=== PATIENT | male | born 1950 | race Caucasian/White ===

== ENCOUNTER 2017-03-16 11:20 | Emergency (ER) | payer MEDICARE ==
[~2017-03-16] VITALS: Ht 182.9 cm; Wt 98.4 kg
[2017-03-16] MEDS ORDERED: AUGMENTIN 875-1 EACH PO (11:58)
--- NOTE | 2017-03-16 11:59 | Emergency Room Report ---
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 N Clinical Suspician of Infection? N Mental Status: 1 - Regular (Normal Baseline) Sepsis Risk:Low Sepsis RiskN Have you (or family members/close friends) recently traveled outside the [place]? N If Yes, where/when: Have you had exposure to infectious disease within the past month? N TB? Other? Specify: Source patient, RN notes reviewed, RN/MD Exam Limitations no limitations Comment Patient accidentally injured her LEFT first thumb, volar aspect, with a sharp edge, just prior to arrival, here with a 2 cm subcutaneous laceration. ALLERGIES Coded Allergies: No Known Allergies (11/24/15) History Medical History General CAD? No Angina: No TN: No Hypertension? No Hyperlipidemia? No CHF? No DVT? No PE? No COPD? No Asthma? No Anemia? No GERD? No Gastric ulcers? No GI Bleed? No Hernia? No Thyroid Problems? No Hypothyroidism? No CVA? No Seizures? No Diabetes? No Renal Insuffiency? No End Stage Renal Disease? No UTI? No Stones? No BPH? No GB Disease: No Nephritic Syndrome? No Asplenia? No Hepatitis? No Sickle Cell Disease? No Arthritis? No Migraines? No Cataracts? No Glaucoma? No MRSA? No HIV? No TB? No Anxiety? No Depression? No Cancer? No More? No Immunization Hx DT/Tetanus 1-4 Years Ago Surgical Hx Previous Surgery?Y ORAL SURGERY Social History Smoking Hx Smoker: Never Smoker Tobacco: No Alcohol Alcohol: No Review of Systems All Other Systems Reviewed and Negative Skin lesions (laceration) Physical Exam Vital Signs Vital Signs Date Time Temp Pulse Resp B/P Pulse O2 O2 Flow FiO2 Ox Delivery Rate 03/16 1216 97.5 80 16 170/80 98 03/16 1129 97.5 84 16 172/100 98 General Appearance normal appearance, WD/WN, no apparent distress Respiratory Status Yes: trachea midline, chest symmetrical, non tender chest. No: respiratory distress. Lung Sounds bilateral: normal breath sounds, lungs clear. 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 No Results/Orders Current Medication Orders Sig/Bharati Start time Last Medication Dose Route Stop Time Status Admin Lidocaine HCl 0 .STK-MED ONE 03/16 1132 DC .ROUTE Procedures Laceration/Wound Repair Laceration/Wound Repair Risks/benefits discussed with pt/guardian? Yes Tetanus status not up to date Wound Location LEFT first finger, volar aspect Wound Length (cm) 2 Wound's Depth, Shape sucutaneous tissue Wound Explored clean Risk of retained FB explained to pt/guardian? Yes Irrigated w/ Saline (ccs) 20 Wound Prep Betadine, Saline Anesthesia 1% Lidocaine, Digital block Volume Anesthetic (ccs) 15 Wound Debrided none Wound Repaired With sutures Suture Size/Type 5:0, Ethilon Total Number Sutures 8 Sterile Dressing Applied Yes Departure Departure Time of Disposition 1155 Disposition DC Home or Self Care(routine) Clinical Impression Primary Impression: Laceration of left index finger Qualifiers: Encounter type: initial encounter Damage to nail status: without damage Foreign body presence: without foreign body Qualified Code: S61.211A - Laceration without foreign body of left index finger without damage to nail, initial encounter Condition STABLE Patient Instructions DI for Open Laceration Additional Instructions Please keep wound clean and dry, change dressing daily, watch carefully for signs of possible local infection take the antibiotics as prescribed, suture removal in 8-10 days with PCP or, alternatively, return to [facility]. Discharge Counseling Counseled pt/family regarding diagnosis, medications/RX, home care, follow up needs Comment Please keep wound clean and dry, change dressing daily, watch carefully for signs of possible local infection take the antibiotics as prescribed, suture removal in 8-10 days with PCP or, alternatively, return to [facility]. Prescriptions Current Visit Scripts Amoxicillin/Potassium Clav (Augmentin 875-125 Tablet) 1 EACH PO BID #14 TAB ED Critical Care Critical Care No at 7302
[2017-03-16 12:16] VITALS: BP 170/80
== END 2017-03-16 12:16 | disposition home or self-care (01) ==
LOC: ER 11:20
PROC: 0HQGXZZ Repair Left Hand Skin, External Approach (ICD-10-PCS; principal; 2017-03-16)
DX: S61.211A Laceration without foreign body of left index finger without damage to nail, initial encounter (principal); W26.0XXA Contact with knife, initial encounter